=== PATIENT | female | born 1980 | race Caucasian/White ===

== ENCOUNTER → 2017-08-01 | Outpatient (CLI) | payer OTHER ==
[~2017-08-01] MED LIST: GADOBUTROL 7.5 MMOL/7.5 ML PFS ONE
== END | disposition home or self-care (01) ==
LOC: CFH 12:59
PROVIDERS: ATTEND Family Medicine
DX: R42 Dizziness and giddiness (principal)
CPT/HCPCS: 70553; A9585

== ENCOUNTER → 2017-08-02 | Outpatient (CLI) | payer OTHER | END | disposition home or self-care (01) | LOC: CFH 12:17 | PROVIDERS: ATTEND Family Medicine | DX: M50.323 Other cervical disc degeneration at C6-C7 level (principal); M48.02 Spinal stenosis, cervical region; D18.09 Hemangioma of other sites; M25.78 Osteophyte, vertebrae; M51.44 Schmorl's nodes, thoracic region; M47.894 Other spondylosis, thoracic region | CPT/HCPCS: 72156; 72157; A9585 ==

== ENCOUNTER 2019-11-19 13:38 | Outpatient (CLI) | payer OTHER | END 2019-11-19 23:59 | disposition home or self-care (01) | LOC: CFH 13:38 | PROVIDERS: ATTEND Family Medicine | DX: N63.12 Unspecified lump in the right breast, upper inner quadrant (principal); Z98.82 Breast implant status | CPT/HCPCS: 76642; 77066; G0279 ==